=== PATIENT | female | born 1950 | race Hispanic/Latino ===

== ENCOUNTER → 2023-04-02 | Day surgery (SDC) | payer MEDICARE, OTHER ==
[~2023-04-02] MED LIST: BALANCED SALT SOLN (OPTH) 15 ML BTL IO ONE; FENTANYL CITRATE/PF 100MCG/2 ML INJ ONE; GLIMEPIRIDE2 MG PO; LACTATED RINGER'S 1,000 ML ONE; LEVOTHYROXINE88 MCG PO; LIPITOR10 MG PO; METFORMIN HCL500 MG PO; MIDAZOLAM HCL 2 MG/2 ML VIAL ONE; OMEPRAZOLE40 MG PO; OR PHACO EYE KIT ONE; PREOP PHACO EYE KIT ONE; ZESTRIL10 MG PO; ZOLPIDEM TARTRAT5 MG PO
[2023-04-02 11:15] VITALS: TEMP 98.4
[2023-04-02 11:30] VITALS: BP 113/53; PULSE 55; RESP 16; O2SAT 95
== END | disposition home or self-care (01) ==
LOC: OR 07:30
PROVIDERS: ATTEND Ophthalmology
DX: H25.12 Age-related nuclear cataract, left eye (principal); I10 Essential (primary) hypertension; E11.9 Type 2 diabetes mellitus without complications; E03.9 Hypothyroidism, unspecified; K21.9 Gastro-esophageal reflux disease without esophagitis; Z79.84 Long term (current) use of oral hypoglycemic drugs; Z79.899 Other long term (current) drug therapy
CPT/HCPCS: 36415; 66984; 82948; J2250; J3010; J7121; V2632

== ENCOUNTER → 2023-04-17 | Day surgery (SDC) | payer MEDICARE ==
[2023-04-11 11:12] LABS: BASOPHILS % 0.4 % (0.0-1.0); EOSINOPHILS # (AUTO) 0.2 (0.0-0.4); EOSINOPHILS % 2.7 % (0.0-6.0); HEMATOCRIT 36.3 % (34.2-44.1); HEMOGLOBIN 12.4 g/dL (12.0-16.0); LYMPHOCYTES # (AUTO) 2.9 (1.0-3.2); LYMPHOCYTES % 43.8 % (18.0-39.1); MEAN CORPUSCULAR HEMOGLOBIN 31.5 pg (28-32); MEAN CORPUSCULAR HGB CONC 34.2 g/dL (31-35); MEAN CORPUSCULAR VOLUME 92.1 fL (81-99); MONOCYTES # (AUTO) 0.6 (0.2-0.8); MONOCYTES % 8.2 % (4.4-11.3); NEUTROPHILS % 44.8 % (38.7-80.0); PLATELET COUNT 229 x10e3/uL (140-360); RED BLOOD COUNT 3.94 x10e6/uL (3.6-5.1); RED CELL DISTRIBUTION WIDTH 12.5 % (11.7-14.4)
[~2023-04-17] MED LIST changes: -BALANCED SALT SOLN (OPTH) 15 ML BTL IO ONE; +DEXTROSE 5% 250ML 250 ML IV ONE; +HYDRALAZINE HCL 20 MG/ML VIAL ONE; -PREOP PHACO EYE KIT ONE
[2023-04-17 13:05] VITALS: BP 162/72; PULSE 62; RESP 18; O2SAT 99
== END | disposition home or self-care (01) ==
LOC: OR 08:28
PROVIDERS: ATTEND Ophthalmology
DX: H25.11 Age-related nuclear cataract, right eye (principal); I10 Essential (primary) hypertension; E78.5 Hyperlipidemia, unspecified; E11.9 Type 2 diabetes mellitus without complications; E03.9 Hypothyroidism, unspecified; K21.9 Gastro-esophageal reflux disease without esophagitis; Z01.812 Encounter for preprocedural laboratory examination; Z79.84 Long term (current) use of oral hypoglycemic drugs; Z79.899 Other long term (current) drug therapy
CPT/HCPCS: 36415 ×2; 66984; 82948; 85025; J0360; J2250; J3010; J7070; J7121; V2632